=== PATIENT | male | born 1995 | race African-American/Black ===

== ENCOUNTER 2024-06-21 08:43 | Emergency (ER) | payer OTHER ==
[~2024-06-21] VITALS: Ht 172.7 cm; Wt 65.8 kg
[2024-06-21 09:13] VITALS: BP 124/82; TEMP 98.3; O2SAT 99
== END 2024-06-21 10:02 | disposition left against medical advice (07) ==
LOC: ER 09:03
DX: R46.1 Bizarre personal appearance (principal); Z53.21 Procedure and treatment not carried out due to patient leaving prior to being seen by health care provider